=== PATIENT | female | born 1965 | race African-American/Black ===

== ENCOUNTER 2020-04-18 04:44 | Emergency (ER) | payer OTHER ==
[~2020-04-18] VITALS: Ht 165.1 cm; Wt 81.7 kg
[~2020-04-18 04:44] MED LIST: AMOXICILLIN 50500 M1 PO; APAP/CODEINE ELI5 M1 OR; BENAZEPRIL-HCT1 EA11 PO; DIFLUCAN150 MG PO; ESTRADIOL 1 MG T1 M1 PO; LEVOTHYROXIN0.125 M1 PO; MEDROLDOSEPACK PO; TESSALON PERLE100 MG PO; VENTOLIN HFA 1818 GM INH; ZYRTEC10 M5 PO
[2020-04-18] MEDS ORDERED: PERCOCET 5-3251 EACH PO (06:20)
[2020-04-18 06:30] VITALS: BP 178/108
== END 2020-04-18 06:30 | disposition home or self-care (01) ==
LOC: ER 04:44
DX: M25.512 Pain in left shoulder (principal); I10 Essential (primary) hypertension; E03.9 Hypothyroidism, unspecified; Z90.711 Acquired absence of uterus with remaining cervical stump; Z98.51 Tubal ligation status; Z79.899 Other long term (current) drug therapy